=== PATIENT | male | born 1965 | race Caucasian/White ===

== ENCOUNTER 2017-12-10 09:37 | Emergency (ER) | payer SELFPAY ==
[2017-12-10 09:57] VITALS: BP 119/71
[2017-12-10 10:42] LABS: Bilirubin,Urine NEG (Negative); Blood,Urine NEG (Negative); Mucus,Urine FEW /HPF; Protein,Urine <15 mg/dL mg/dL (Negative)
[2017-12-10 10:48] LABS: Basophils % (Auto) 0.4 % (0.0-1.8); Eosinophils % (Auto) 0.8 % (0.0-4.3); Hematocrit 38.1 % (35.5-45.6); Hemoglobin 13.5 gm/dl (11.8-15.2); Lymphocytes # (Auto) 0.5 K/mm3 (1.2-5.4); Mean Corpuscular HGB Conc 36 % (32-34); Mean Corpuscular Hemoglobin 31 pg (28-32); Mean Corpuscular Volume 87 fl (84-94); Monocytes # (Auto) 0.5 K/mm3 (0.0-0.8); Monocytes % (Auto) 10.8 % (0.0-7.3); Platelet Count 190 K/mm3 (140-440); Red Blood Count 4.39 M/mm3 (3.65-5.03); Red Cell Distribution Width 13.1 % (13.2-15.2)
[2017-12-10 10:53] LABS: Bacteria,Urine 1+ /HPF (Negative)
[2017-12-10 10:54] LABS: Color,Urine Yellow (Yellow)
[2017-12-10 11:05] LABS: BUN/Creatinine Ratio 13; Blood Urea Nitrogen 9 mg/dL (9-20); Calcium 9.6 mg/dL (8.4-10.2); Hemolysis Index 13
--- NOTE | 2017-12-10 11:12 | Emergency Department Report ---
ED Male HPI - General Chief complaint: Abdominal Pain Stated complaint: UTI Time Seen by Provider: 12/10/17 10:03 Source: patient Mode of arrival: Ambulatory Limitations: No Limitations - History of Present Illness Initial comments: 52-year-old male with a past medical history recently diagnosed UTI presents to the hospital with complaints of urinary retention and inability to urinate significantly since 3 PM yesterday. Patient was seen at [facility] 2 days ago on Friday the for pelvic and back pain. He was diagnosed with hematuria and UTI. Family states he had a CT abdomen and pelvis that did not show kidney stones. He was discharged on ciprofloxacin. Patient complains of 10/10 suprapubic abdominal pain and inability to void. Patient did not take his ciprofloxacin due to pain. No complaints of nausea, vomiting, or fever. Patient did complain of chest pain during triage. - Related Data Previous Rx's Medication Instructions Recorded Last Taken Type Tamsulosin [Flomax] 0.4 mg PO QDAY #30 cap 12/10/17 Unknown Rx Allergies Allergy/AdvReac Type Severity Reaction Status Date / Time No Known Allergies Allergy Unverified 12/10/17 09:52 ED Review of Systems ROS: Stated complaint: UTI Other details as noted in HPI ED Past Medical Hx - Past Medical History Previous Medical History?: No - Surgical History Past Surgical History?: No - Social History Smoking Status: Never Smoker Substance Use Type: None - Medications Home Medications: Home Medications Medication Instructions Recorded Confirmed Last Taken Type Tamsulosin [Flomax] 0.4 mg PO QDAY #30 cap 12/10/17 Unknown Rx ED Physical Exam - General Limitations: No Limitations - Other Other exam information: General: Moderate distress secondary to pain Head exam: Atraumatic, normocephalic Eyes exam: Normal appearance ENT: Moist mucous membrane, normal oropharynx Neck exam: Normal inspection, full range of motion, no meningismus nontender Respiratory exam: Clear to auscultation bilateral, no wheezes, rales, crackles Cardiovascular: Normal rate and rhythm, normal heart sounds Abdomen: Suprapubic distention, no tenderness on palpation. : Uncircumcised, no penile discharge, no testicular or epididymal pain or swelling Extremity: Full range of motion normal inspection no deformity Back: Normal Inspection, full range of motion, no tenderness Neurologic: Alert, oriented x3, cranial nerves intact, no motor or sensory deficit Psychiatric: normal affect, normal mood Skin: Warm, dry, intact ED Course Vital Signs 12/10/17 09:53 Temperature 98.4 F Pulse Rate 86 Respiratory 18 Rate Blood Pressure 119/71 [Right] O2 Sat by Pulse 99 Oximetry - Reevaluation(s) Reevaluation #1: 12/10/17 11:11 Patient had immediate release of 900 mL of blood-tinged urine after Avelar placement. Positive relief in pain. Patient's chest pain also improved after Avelar placement and he is pain-free and comfortable ED Medical Decision Making - Lab Data Result diagrams: 12/10/17 10:22 12/10/17 10:22 Lab Results 12/10/17 12/10/17 12/10/17 Range/Units 10:22 10:22 10:28 WBC 4.9 (4.5-11.0) K/mm3 RBC 4.39 (3.65-5.03) M/mm3 Hgb 13.5 (11.8-15.2) gm/dl Hct 38.1 (35.5-45.6) % MCV 87 (84-94) fl MCH 31 (28-32) pg MCHC 36 H (32-34) % RDW 13.1 L (13.2-15.2) % Plt Count 190 (140-440) K/mm3 Lymph % (Auto) 11.0 L (13.4-35.0) % [place] % (Auto) 10.8 H (0.0-7.3) % Eos % (Auto) 0.8 (0.0-4.3) % Baso % (Auto) 0.4 (0.0-1.8) % Lymph # 0.5 L (1.2-5.4) K/mm3 [place]kins # 0.5 (0.0-0.8) K/mm3 Eos # 0.0 (0.0-0.4) K/mm3 Baso # 0.0 (0.0-0.1) K/mm3 Seg Neutrophils % 77.0 H (40.0-70.0) % Seg Neutrophils # 3.8 (1.8-7.7) K/mm3 Sodium 138 (137-145) mmol/L Potassium 3.8 (3.6-5.0) mmol/L Chloride 102.4 (98-107) mmol/L Carbon Dioxide 22 (22-30) mmol/L Anion Gap 17 mmol/L BUN 9 (9-20) mg/dL Creatinine 0.7 L (0.8-1.5) mg/dL Estimated GFR > 60 ml/min BUN/Creatinine Ratio 13 % Glucose 116 H (75-100) mg/dL Calcium 9.6 (8.4-10.2) mg/dL Urine Color Yellow (Yellow) Urine Turbidity Clear (Clear) Urine pH 7.0 (5.0-7.0) Ur Specific [place] 1.006 (1.003-1.030) Urine Protein <15 mg/dl (Negative) mg/dL Urine Glucose (UA) Neg (Negative) mg/dL Urine Ketones Neg (Negative) mg/dL Urine Blood Neg (Negative) Urine Nitrite Pos (Negative) Urine Bilirubin Neg (Negative) Urine Urobilinogen 4.0 (<2.0) mg/dL Ur Leukocyte Esterase Neg (Negative) Urine WBC (Auto) 3.0 (0.0-6.0) /HPF Urine RBC (Auto) 2.0 (0.0-6.0) /HPF Urine Bacteria (Auto) 1+ (Negative) /HPF Urine Mucus Few /HPF - Medical Decision Making Patient presented with acute urinary obstruction and we see diagnosed UTI Improvement after Avelar placement Patient instructed to continue current ibuprofen, Pyridium, and ciprofloxacin as prescribed CBC and BMP unremarkable. Flomax will be added to medication regimen Urology follow-up encouraged Leg bag placed prior to discharge. - Differential Diagnosis urinary retention, prostate hypertrophy, UTI, renal failure Critical Care Time: No Critical care attestation.: If time is entered above; I have spent that time in minutes in the direct care of this critically ill patient, excluding procedure time. ED Disposition Clinical Impression: Urine retention, UTI (urinary tract infection), Status post insertion of Avelar catheter Disposition: DC-01 TO HOME OR SELFCARE Is pt being admited?: No Does the pt Need Aspirin: No Condition: Stable Instructions: Urinary Retention in Men (ED), Urinary Leg Bag (GEN), Urinary Tract Infection in Men (ED) Additional Instructions: Continue your current medication in addition to prescribe medication here today. It is very important that you follow up with the urologist for further workup and evaluation of your difficulty urinating. Please return if symptoms worsen as indicated by your discharge instructions. Contine con child medicacin actual adems de recetar medicamentos aqu hoy. Es muy importante que manjinder un seguimiento con el urlogo para un estudio posterior y chivo evaluacin de child dificultad para orinar. Por favor regrese si los sntomas empeoran segn lo indicado por anh instrucciones de kate. Prescriptions: Tamsulosin [Flomax] 0.4 mg PO QDAY #30 cap Referrals: ROSIE FISHER MD [Staff Physician] - 2-3 Days (Urology) Time of Disposition: 11:17 Print Language: TURKISH
== END 2017-12-10 11:47 | disposition home or self-care (01) ==
LOC: ED 09:37
DX: N39.0 Urinary tract infection, site not specified (principal); Z46.6 Encounter for fitting and adjustment of urinary device
CPT/HCPCS: 36415; 51702; 80048; 81001; 85025; 99283